=== PATIENT | female | born 1995 | race Two or more races ===

== ENCOUNTER 2024-11-22 15:43 | Emergency (ER) | payer OTHER ==
[~2024-11-22] VITALS: Ht 152.4 cm; Wt 49.9 kg
[2024-11-22 15:53] VITALS: TEMP 98
[2024-11-22] MEDS: IV NS 0.9% 1,000 ML BAG IV ONE (16:42)
[2024-11-22] MEDS ORDERED: FAMOTIDINE/PF INJ 20 MG/2 ML VIAL IV ONE (16:48)
[2024-11-22] MEDS ORDERED: ONDANSETRON HCL/PF 4 MG/2 ML VIAL ONE (16:48)
[2024-11-22] MEDS ORDERED: LIDOCAINE VISCOUS 2% UD 15 ML UDC ONE (16:48)
[2024-11-22 16:52] LABS: PLATELET COUNT (AUTO) 361 K/uL (150-450); RED BLOOD CELL COUNT(AUTO) 4.91 MIL/uL (4.0-5.2); RED CELL DISTRIBUTION WIDTH 13.8 % (11.5-15.0); WHITE BLOOD COUNT (AUTO) 20.8 K/uL (4.3-11.0)
[2024-11-22] MEDS: LIDOCAINE VISCOUS 2% UD 15 ML UDC MM ONE (16:55)
[2024-11-22] MEDS: ONDANSETRON HCL/PF 4 MG/2 ML VIAL IVP ONE (16:56)
[2024-11-22] MEDS: FAMOTIDINE/PF INJ 20 MG/2 ML VIAL IV ONE (17:00)
[2024-11-22 17:05] LABS: ASPARTATE AMINOTRANSFERASE 23.0 U/L (15-37); CALCIUM, SERUM 9.0 mg/dL (8.5-10.1); CREATININE 0.8 mg/dL (0.6-1.3); SODIUM SERUM 140.0 mmol/L (136-145); TOTAL PROTEIN, SERUM 8.6 g/dL (6.4-8.2); UREA NITROGEN, BLOOD 13.0 mg/dL (7-18)
[2024-11-22 17:06] LABS: PREGNANCY TEST URINE QUAL NEGATIVE (NEGATIVE)
[2024-11-22 17:27] LABS: APPEARANCE,URINE CLEAR (CLEAR); BLOOD, URINE NEGATIVE Ery/uL (NEGATIVE); LEUKOCYTE ESTERASE ,URINE NEGATIVE (NEGATIVE); NITRITE, URINE NEGATIVE (NEGATIVE); UGLUCOSE NEGATIVE (NEGATIVE)
[2024-11-22 17:50] LABS: SQUAMOUS EPITHELIAL CELL,UR Moderate /HPF (None Seen)
[2024-11-22 17:54] LABS: ADD URINE CULTURE NO
[2024-11-22] MEDS ORDERED: FAMO20TA80 PO (18:40)
[2024-11-22] MEDS ORDERED: ONDA4TAB5 PO (18:40)
[2024-11-22 18:50] VITALS: BP 119/65; O2SAT 99
== END 2024-11-22 18:45 | disposition home or self-care (01) ==
LOC: ER 15:43
DX: R10.13 Epigastric pain (principal); R11.2 Nausea with vomiting, unspecified; R19.7 Diarrhea, unspecified
CPT/HCPCS: 99284; 96374; 96361; 96375; 93005; 85025; 80048; 83690; 80076; 81001; 36415; 84703 ×2; J1308; J2405; J7030